=== PATIENT | female | born 1970 ===

== ENCOUNTER 2017-11-28 09:59 | Emergency (ER) | payer OTHER ==
[2017-11-28 10:11] VITALS: BMI 26.1
[2017-11-28] MEDS ORDERED: Sodium Chloride 0.9% 1,000 ML IV SCH (10:45)
--- NOTE | 2017-11-28 11:00 | ED PDOC ---
HPI: General Adult Chief Complaint (Provider): chills, flank pain, vomiting, diarrhea History Per: Patient Onset/Duration Of Symptoms: Days Current Symptoms Are (Timing): Still Present <Syl Khan - Last Filed: 11/28/17 10:56> <Yehuda Ortiz - Last Filed: 11/28/17 15:32> Additional Complaint(s): 47 yo F with no significant known medical history presented to ED today with complaints of bilateral flank pain, vomiting, and diarrhea x 3 days, also has had chills and weakness. Has taken nyquil and tylenol at home without relief. No PMD PMH: none Past surg hx: D&C 19 y ago due to miscarriage Soc hx: no tobacco, alcohol, drugs Fam hx: noncontributory Meds: none Allergies: none LMP: 2 weeks ago (Syl Khan) No chest pain, dyspnea, headache. No abd pain or dysuria. (Yehuda Ortiz) Supervising Attending Note <Syl Khan - Last Filed: 11/28/17 10:56> - Supervising Attending Note The Documented history was done by the: Physician Acid Purification Equipment Operator The documented physical exam was done by the: Physician Acid Purification Equipment Operator The documented procedures were done by the: Physician Acid Purification Equipment Operator - Attestation: I have personally seen and examined this patient.: Yes I have fully participated in the care of the patient.: Yes I have reviewed all pertinent clinical information, including history, physical exam and plan: Yes <Yehuda Ortiz - Last Filed: 11/28/17 15:32> - Notes: Notes:: Back pain, fever. (Yehuda Ortiz) Past Medical History - Medical History PMH: No Chronic Diseases - Surgical History Other surgeries: D&C in ~1998 - Family History Family History: States: No Known Family Hx - Social History Alcohol: None Drugs: Denies - Immunization History Hx Tetanus Toxoid Vaccination: Yes Hx Influenza Vaccination: No Hx Pneumococcal Vaccination: No <Syl Khan - Last Filed: 11/28/17 10:56> <Yehuda Ortiz - Last Filed: 11/28/17 15:32> Vital Signs: Last Vital Signs Temp 98.2 F 11/28/17 15:12 Pulse 92 H 11/28/17 15:12 Resp 18 11/28/17 15:12 BP 102/56 L 11/28/17 15:12 Pulse Ox 98 11/28/17 15:12 - Home Medications Home Medications: Ambulatory Orders Medication Instructions Recorded Ciprofloxacin HCl [Cipro] 500 mg PO BID 7 Days tab 11/28/17 Ibuprofen [Motrin] 600 mg PO TID 7 Days tab 11/28/17 Ondansetron [Zofran] 4 mg PO Q8H PRN #6 tab 11/28/17 - Allergies Allergies/Adverse Reactions: Allergies Allergy/AdvReac Type Severity Reaction Status Date / Time No Known Allergies Allergy Verified 11/14/17 07:18 Review of Systems ROS Statement: Except As Marked, All Systems Reviewed And Found Negative Constitutional: Positive for: Fever, Chills, Weakness, Malaise Eyes: Negative for: Vision Change Cardiovascular: Negative for: Chest Pain, Palpitations Respiratory: Negative for: Cough, Shortness of Breath Gastrointestinal: Positive for: Nausea, Vomiting, Diarrhea Genitourinary Female: Negative for: Dysuria, Frequency, Hematuria Musculoskeletal: Positive for: Back Pain Neurological: Positive for: Weakness. Negative for: Numbness <Syl Khan - Last Filed: 11/28/17 10:56> Physical Exam - Reviewed Nursing Documentation Reviewed: Yes Vital Signs Reviewed: Yes - Physical Exam Appears: Positive for: Uncomfortable Head Exam: Positive for: NORMAL INSPECTION Skin: Positive for: Normal Color, Warm Eye Exam: Positive for: Normal appearance Neck: Positive for: Supple Cardiovascular/Chest: Positive for: Regular Rate, Rhythm, Chest Non Tender Respiratory: Positive for: Normal Breath Sounds Pulses-Radial (L): 2+ Pulses-Radial (R): 2+ Gastrointestinal/Abdominal: Positive for: Bowel Sounds, Soft. Negative for: Tenderness, Mass, Distended, Guarding Back: Positive for: L CVA Tenderness, R CVA Tenderness Extremity: Negative for: Pedal Edema, Deformity Neurologic/Psych: Positive for: Alert, Oriented, Other (no gross focal deficits) <Syl Khan - Last Filed: 11/28/17 10:56> - Physical Exam Cardiovascular/Chest: Positive for: Regular Rate, Rhythm, Chest Non Tender Respiratory: Positive for: Normal Breath Sounds Gastrointestinal/Abdominal: Positive for: Bowel Sounds, Soft. Negative for: Tenderness Back: Positive for: L CVA Tenderness, R CVA Tenderness Extremity: Negative for: Pedal Edema <Yehuda Otriz - Last Filed: 11/28/17 15:32> - ECG O2 Sat by Pulse Oximetry: 99 <Syl Khan - Last Filed: 11/28/17 10:56> - Laboratory Results Result Diagrams: 11/28/17 10:55 11/28/17 10:55 Interpretation Of Abn Labs: urine wbc - Radiology X-Ray: Read By Radiologist X-Ray Interpretation: No Acute Disease - CT Scan/US ct Other Rad Studies (CT/US): Read By Radiologist Other Rad Interpretation: 1.6 cm ovarian cyst <Yehuda Ortiz - Last Filed: 11/28/17 15:32> - Progress ED Course And Treament: 1537: Stable. AAOx3. Pain free. Tolerates PO. Fu with pcp. GI issues and will tx for pyelo as pt. has cva tenderness and borderline ua. (Yehuda Ortiz) Medical Decision Making <Syl Khan - Last Filed: 11/28/17 10:56> <Yehuda Ortiz - Last Filed: 11/28/17 15:32> Medical Decision Making: - EKG Labs: - CBC - CMP - VBG - PT/PTT/ INR - Lipase - Magnesium - Phos - Blood culture - Urine culture - UA Meds: Toradol Tylenol Zofran NS 1L @ 1000 ml/hr Imaging - CT abd/pelvis W/ contrast (Syl Khna) Disposition <Syl Khan - Last Filed: 11/28/17 10:56> - Patient ED Disposition Is Patient to be Admitted: No Counseled Patient/Family Regarding: Studies Performed, Diagnosis, Need For Followup, Rx Given - Disposition Disposition: Routine/Home Disposition Time: 15:29 <Yehuda Ortiz - Last Filed: 11/28/17 15:32> - Clinical Impression Clinical Impression: Vomiting and diarrhea, Pyelonephritis, Ovarian cyst - Disposition Referrals: [facility] [Outside] - 11/29/17 Condition: STABLE Additional Instructions: Return if not better in 3 days. Prescriptions: Ciprofloxacin HCl [Cipro] 500 mg PO BID 7 Days tab Ibuprofen [Motrin] 600 mg PO TID 7 Days tab Ondansetron [Zofran] 4 mg PO Q8H PRN #6 tab PRN Reason: Nausea/Vomiting Instructions: Kidney Infection, Nausea and Vomiting, Adult (DC), Diarrhea in Adolescents and Adults, Ovarian Cyst (DC)
[2017-11-28 11:03] LABS: VENOUS BLOOD GAS BASE EXCESS 1.2 mmol/L (0.0-2.0); VENOUS BLOOD GAS PCO2 41 mmHg (40-60); VENOUS BLOOD GAS PO2 18 mm/Hg (30-55); VENOUS BLOOD PH 7.41 (7.32-7.43)
[2017-11-28 11:07] LABS: SQUAMOUS EPITHIAL 31 /hpf (0-5); URINE BACTERIA RARE (<OCC); URINE BILIRUBIN NEGATIVE (NEGATIVE); URINE BLOOD NEGATIVE (NEGATIVE); URINE CLARITY CLOUDY (Clear); URINE COLOR YELLOW (YELLOW); URINE GLUCOSE (UA) NEG (Normal); URINE LEUKOCYTE ESTERASE NEG Leu/uL (Negative); URINE PROTEIN 30 mg/dL (NEGATIVE); URINE UROBILINOGEN 0.2-1.0 mg/dL (0.2-1.0)
[2017-11-28 11:09] LABS: INR 1.1 (0.9-1.2); PROTHROMBIN TIME 12.5 Seconds (9.8-13.1)
[2017-11-28 11:11] LABS: ALB/GLOB RATIO 1.2 (1.0-2.1); ALBUMIN 3.9 g/dL (3.5-5.0); ALT/SGPT 23 U/L (9-52); AST/SGOT 27 U/L (14-36); BASO % 0.3 % (0.0-2.0); BLOOD UREA NITROGEN 9 mg/dl (7-17); CALCIUM 8.4 mg/dL (8.4-10.2); EOS % 0.1 % (0.0-4.0); GFR AFRICAN-AMERICAN > 60; GFR NON-AFRICAN AMERICAN > 60; HEMOGLOBIN 12.9 g/dL (12.0-16.0); LIPASE 82 U/L (23-300); LYMPH # 1.2 K/uL (1.0-4.3); LYMPH % 13.9 % (20.0-40.0); MEAN CELL VOLUME 84.2 fl (81.0-99.0); MEAN CORPUSCULAR HEMOGLOBIN 28.5 pg (27.0-31.0); MEAN CORPUSCULAR HGB CONC 33.9 g/dL (33.0-37.0); MEAN PLATELET VOLUME 7.5 fl (7.2-11.7); MONO # 0.8 K/uL (0.0-0.8); MONO % 9.7 % (0.0-10.0); NEUT # 6.6 K/uL (1.8-7.0); NRBC % 0.1 % (0.0-0.0); RBC 4.53 Mil/uL (3.80-5.20); RED CELL DISTRIBUTION WIDTH 14.2 % (11.5-14.5); WHITE BLOOD COUNT 8.7 K/uL (4.8-10.8)
--- NOTE | 2017-11-28 11:34 | RAD ---
Date of service: 11/28/2017 HISTORY: Sepsis Patient COMPARISON: 11/28/2017. FINDINGS: LUNGS: No active pulmonary disease. PLEURA: No significant pleural effusion identified, no pneumothorax apparent. CARDIOVASCULAR: No radiographic findings to suggest acute or significant cardiovascular disease. OSSEOUS STRUCTURES: No significant abnormalities. VISUALIZED UPPER ABDOMEN: Normal. OTHER FINDINGS: None. IMPRESSION: No active disease. No significant interval change compared to the prior examination(s).
[2017-11-28] MEDS ORDERED: Iohexol 300 100 ML IJ ONE (12:08)
[2017-11-28] MEDS ORDERED: Sodium Chloride 0.9% 50 ML IV ONE (12:09)
--- NOTE | 2017-11-28 13:03 | CT ---
Date of service: 11/28/2017 PROCEDURE: CT Abdomen and Pelvis with contrast HISTORY: flank pain COMPARISON: None. TECHNIQUE: Contrast dose: 95 mL Omnipaque 300 Radiation dose: Total exam DLP = 608.44 mGy-cm. This CT exam was performed using one or more of the following dose reduction techniques: Automated exposure control, adjustment of the mA and/or kV according to patient size, and/or use of iterative reconstruction technique. FINDINGS: LOWER THORAX: Unremarkable. LIVER: Mild hepatomegaly. The liver measures 19.8 cm craniocaudal. Smooth contour. No mass. No biliary dilatation. GALLBLADDER AND BILE DUCTS: Unremarkable. PANCREAS: Unremarkable. No gross lesion or ductal dilatation. SPLEEN: Unremarkable. ADRENALS: Unremarkable. No mass. KIDNEYS AND URETERS: Unremarkable. No hydronephrosis. No solid mass. VASCULATURE: Unremarkable. No aortic aneurysm. BOWEL: Unremarkable. No obstruction. No gross mural thickening. APPENDIX: Normal appendix. PERITONEUM: Trace fluid in cul-de-sac LYMPH NODES: Unremarkable. No enlarged lymph nodes. BLADDER: Suboptimally distended. Grossly unremarkable. REPRODUCTIVE: Uterus with appearance suggestive of septate or sub septate morphology. Left ovarian cyst, 1.6 cm. Likely physiologic. BONES: No acute fracture. OTHER FINDINGS: None. IMPRESSION: No acute abnormality. 1.6 cm left ovarian cyst, likely physiologic. Trace fluid in cul-de-sac. Possible septate/ sub septate uterus. Mild hepatomegaly. No additional abnormality.
[2017-11-28 15:13] VITALS: O2SAT 98
--- NOTE | 2017-11-28 15:16 | CARD ---
APPROVED REPORT Date of service: 11/28/2017 EKG Measurement Heart [id number] <Conclusion> Sinus tachycardia Possible Left atrial enlargement St changes noticed consider inferior lateral ischemia Borderline ECG
[2017-11-28 15:43] VITALS: BP 128/76; PULSE 90; RESP 19; TEMP 98.7
== END 2017-11-28 15:46 | disposition home or self-care (01) ==
LOC: H.ER 09:59
DX: N12 Tubulo-interstitial nephritis, not specified as acute or chronic (principal); N83.202 Unspecified ovarian cyst, left side
CPT/HCPCS: 71045; 74177; 80053; 81003; 81025; 82803; 83690; 83735; 84100; 85025; 85610; 85730; 87040; 87086; 93005; 96374; 99284; J1885; J2405; J7030; Q9967